=== PATIENT | female | born 1965 ===

== ENCOUNTER → 2022-05-24 14:27 | Outpatient (CLI) | payer MEDICARE, MEDICAID, SELFPAY ==
--- NOTE | ~2022-05-24 | MR_ITS ---
EXAMINATION: MR lumbar spine wo con DATE: 05/24/2022 15:00 INDICATION: Postlaminectomy syndrome, not elsewhere classified. Low back pain. TECHNIQUE: Magnetic resonance imaging (MRI) of the lumbar spine was performed without intravenous con trast. COMPARISON: None. FINDINGS: There is 5 degrees dextrocurvature of lumbar spine. There is 3 mm retrolisthesis of L1 on L 2 and L2 on L3. Vertebral body heights are normal. There are changes of anterior and posterior fusion procedures at L4-L5 with interbody devices and pedicle screws. There is moderately decreased disc he ight at L2-L3 and L3-L4 and mildly decreased disc height at L5-S1. The distal spinal cord signal inte nsity is normal. The conus medullaris is at L1. The following disc levels are specifically discussed: L1-L2: The disc does not extend beyond the endplate margin. There is moderate bilateral facet joint o steoarthritis. There is no neural foraminal stenosis. There is no central canal stenosis. L2-L3: The disc is bulging with superimposed central extrusion. There is severe bilateral facet joint osteoarthritis. There is mild bilateral neural foraminal stenosis. There is mild central canal steno sis. L3-L4: The disc is bulging with superimposed left central and foraminal zone extrusion with mass effe ct on the left L4 nerve root in left lateral recess. There is moderate bilateral facet joint osteoart hritis. There is mild bilateral neural foraminal stenosis. There is mild central canal stenosis. Ther e is moderate stenosis of left lateral recess. L4-L5: There is mild bilateral facet joint hypertrophy. There is mild bilateral neural foraminal sten osis. There is no central canal stenosis. There is posterior decompression. L5-S1: The disc does not extend beyond the endplate margin. There is moderate bilateral facet joint o steoarthritis. There is mild right neural foraminal stenosis. There is no central canal stenosis. IMPRESSION: 1. Moderate lumbar spondylosis, worst at L3-L4. 2. Anterior and posterior fusion procedures at L4-L5. Reviewed, dictated and finalized at location E. [employer]
== END ==
PROVIDERS: PCP Nurse Practitioner Family; Visit Provider Nurse Practitioner Family
DX: M96.1 Postlaminectomy syndrome, not elsewhere classified (principal); M47.896 Other spondylosis, lumbar region; Z98.1 Arthrodesis status
CPT/HCPCS: 72148